=== PATIENT | male | born 2000 | race Caucasian/White ===

== ENCOUNTER 2023-06-24 06:23 | Emergency (ER) | payer OTHER ==
[~2023-06-24] VITALS: Ht 177.8 cm; Wt 118.2 kg
[2023-06-24 06:24] VITALS: BP 134/77; PULSE 79; RESP 20; TEMP 98.4
[2023-06-24] MEDS ORDERED: IBUP-1492 PO (08:36)
== END 2023-06-24 08:46 | disposition home or self-care (01) ==
LOC: EMS 06:25
DX: M79.671 Pain in right foot (principal)
CPT/HCPCS: 99283